=== PATIENT | female | born 1945 ===

== ENCOUNTER 2016-06-29 21:08 | Emergency (ER) | payer MEDICARE, BC ==
--- NOTE | 2016-07-24 10:14 | ER ---
ADMIT: 06/29/2016 RM/LOC: ER [facility] MR#: [id number] [id number] [place], [place] [address] BEKA GARCIA [address] [facility] [address] [place] [address] Emergency Room Report SEX: F AGE: 71 : 1945 DATE: 06/29/2016 ADDENDUM: This patient comes into the ER because she has a prolapsed uterus and she noticed that there is a little bit of bleeding. She states that her uterus usually prolapses out, but today it seems to be prolapsing more than it normally does. On physical exam, she does indeed have a prolapsed uterus. I did reduce it pushing it up. The skin was slightly friable. She really had no pain. I discussed with the patient that the skin of the cervix was very friable and since it had prolapsed more than normal, which probably caused bleeding. She was alert and had normal vital signs. I will have her follow up with Dr. Oshea to discuss either a pessary or possible surgery. Please see my T-sheet. CH[place]O [place] / Bandar Briscoe MD / curtl JOB #: [id number] CC: Bandar Briscoe MD, Attending Physician Maycol Chang MD, Family Physician
== END 2016-06-29 22:10 | disposition home or self-care (01) ==
LOC: ER 21:08
DX: N81.4 Uterovaginal prolapse, unspecified (principal); I10 Essential (primary) hypertension; Z88.1 Allergy status to other antibiotic agents; Z88.2 Allergy status to sulfonamides

== ENCOUNTER 2016-10-15 14:26 | Emergency (ER) | payer MEDICARE, BC ==
--- NOTE | 2016-10-24 18:05 | ER ---
ADMIT: 10/15/2016 RM/LOC: ER [facility] MR#: [id number] [id number] [place], [place] [id number] BEKA GARCIA [address] [facility] [address] [place] [address] Emergency Room Report SEX: F AGE: 71 : 1945 DATE: 10/15/2016 ADDENDUM: CHIEF COMPLAINT: Low back pain. HISTORY OF PRESENT ILLNESS: This is a 71-year-old female, who has a history of having chronic back pain. She needs something just to help her out a little bit more here. She is also complaining of left thigh pain which she said she has had vascular issues with it before. Ultrasound was done of her leg, it is negative for any DVT. I am sending her home with Willard for pain because she said that tramadol is not helping her at this time, and then she will follow up with her doctor as scheduled for her next epidural. CLINICAL IMPRESSION: Acute on chronic low back pain. [place] / Stewart Valdez MD / tye JOB #: [id number] CC: Stewart Valdez MD, Attending Physician Maycol Chang MD, Family Physician
== END 2016-10-15 17:29 | disposition home or self-care (01) ==
LOC: ER 14:26
DX: M54.5 Low back pain (principal); G89.29 Other chronic pain; I10 Essential (primary) hypertension; E78.00 Pure hypercholesterolemia, unspecified; Z88.1 Allergy status to other antibiotic agents